=== PATIENT | female | born 1960 | race Caucasian/White ===

== ENCOUNTER 2017-02-01 11:09 | Emergency (ER) | payer OTHER ==
--- NOTE | 2017-02-01 12:30 | UC ---
Upper Extremity HPI - HPI Summary HPI Summary: 56 YEAR OLD FEMALE PRESENTS WITH RIGHT WRIST PAIN. - History of Current Complaint Stated Complaint: WRIST INJURY Time Seen by Provider: 02/01/17 12:30 Hx Obtained From: Patient Hx Last Menstrual Period: UNKNOWN Onset/Duration: Sudden Onset Severity Initially: Moderate Severity Currently: Moderate Pain Scale Used: 0-10 Numeric - 7 - Allergies/Home Medications Allergies/Adverse Reactions: Allergies Allergy/AdvReac Type Severity Reaction Status Date / Time No Known Allergies Allergy Verified 09/12/15 13:50 PMH/Surg Hx/FS Hx/Imm Hx Previously Healthy: Yes - Surgical History Surgical History: Yes Surgery Procedure, Year, and Place: RT KNEE ARTHROSCOPY X2 AND PARTIAL KNEE REPLACEMENT/T&A - Social History Alcohol Use: Rare Substance Use Type: None Smoking Status (MU): Never Smoked Tobacco Have You Smoked in the Last Year: No Review of Systems Constitutional: Negative Skin: Negative Eyes: Negative ENT: Negative Respiratory: Negative Cardiovascular: Negative Gastrointestinal: Negative Genitourinary: Negative Motor: Negative Neurovascular: Negative Musculoskeletal: Other: - RIGHT WRIST PAIN Neurological: Negative Psychological: Negative All Other Systems Reviewed And Are Negative: Yes Physical Exam Triage Information Reviewed: Yes Appearance: Well-Appearing Vital Signs Reviewed: Yes Eye Exam: Normal ENT Exam: Normal Dental Exam: Normal Neck exam: Normal Neck: Positive: 1 Respiratory Exam: Normal Cardiovascular Exam: Normal Abdominal Exam: Normal Musculoskeletal: Positive: Other: - RIGHT WRIST PAIN Neurological Exam: Normal Psychological Exam: Normal Skin Exam: Normal Upper Extremity Course/Dx - Differential Dx/Diagnosis Provider Diagnoses: RIGHT WRIST PAIN Discharge - Discharge Plan Condition: Stable Disposition: HOME Prescriptions: Methylprednisolone [Medrol Dosepak 4 MG*] 4 mg PO .SEE ANTHONY INSTRUCTION #21 tab Patient Education Materials: Wrist Sprain (ED) Referrals: Priscilla Field NP [Primary Care Provider] - Additional Instructions: PLEASE SEE RHEUMATOLOGY
[2017-02-01 13:00] VITALS: BP 135/67
--- NOTE | 2017-02-01 13:35 | RAD ---
INDICATION: RIGHT wrist pain without proceeding injury. COMPARISON: April 30, 2015 TECHNIQUE: AP, lateral, and oblique views RIGHT wrist. REPORT: Negative for fracture or malalignment. Mild osteophytosis without significant joint space narrowing at the scaphoid trapezium and trapezium first metacarpal articulations. Mild nonfocal soft tissue swelling. IMPRESSION: No traumatic injury evident. Mild osteoarthritis.
[2017-02-01 17:36] LABS: Hematocrit 41 % (35-47); Hemoglobin 13.6 g/dl (12.0-16.0); Mean Corpuscular HGB Conc 33 g/dl (31-36); Mean Corpuscular Hemoglobin 32 pg (27-31); Mean Corpuscular Volume 95 fL (80-97); Mean Platelet Volume 12 um3 (7.4-10.4); Red Blood Count 4.32 10^6/ul (4.0-5.4); Red Cell Distribution Width 14 % (10.5-15); White Blood Count 13.6 10^3/ul (3.5-10.8)
[2017-02-01 17:59] LABS: Albumin 4.4 g/dL (3.2-5.2); BUN/Creatinine Ratio 28.8 (8-20); Calcium 9.7 mg/dL (8.6-10.3); EGFR African American 106.8 (>60); EGFR Non-African American 83.1 (>60); Globulin 2.8 g/dL (2-4); Potassium 4.1 mmol/L (3.5-5.0); Total Bilirubin 0.3 mg/dL (0.2-1.0); Total Protein 7.2 g/dL (6.4-8.9)
--- NOTE | 2017-02-02 08:11 | UC ---
Progress - Progress Note Progress Note: notify pt of elevated WBCs I am unsure of significance she should see her provider in follow up to ER if worse
--- NOTE | 2017-02-02 14:39 | UC ---
Progress - Progress Note Progress Note: notify pt of elevated WBCs I am unsure of significance she should see her provider in follow up to ER if worse 02/02/17 please call patient. see how wrist swelling is doing ? still waiting for lyme results.
--- NOTE | 2017-02-02 17:15 | UC ---
Progress - Progress Note Progress Note: notify pt of elevated WBCs I am unsure of significance she should see her provider in follow up to ER if worse 02/02/17 please call patient. see how wrist swelling is doing ? still waiting for lyme results. 02/02/17 fede called patient.
--- NOTE | 2017-02-03 15:36 | UC ---
Progress - Progress Note Progress Note: notify pt of elevated WBCs I am unsure of significance she should see her provider in follow up to ER if worse 02/02/17 please call patient. see how wrist swelling is doing ? still waiting for lyme results. 02/02/17 fede called patient. 02/03/17 call patient. lyme negative.
== END 2017-02-01 14:00 | disposition home or self-care (01) ==
LOC: UCEAST 11:09
DX: M25.531 Pain in right wrist (principal)
CPT/HCPCS: 36415; 80053; 85025; 86618; 99213; G0463